=== PATIENT | male | born 1955 | race Caucasian/White ===

== ENCOUNTER 2021-07-23 13:52 | Outpatient (REF) | payer OTHER, SELFPAY ==
[2021-07-23 21:18] LABS: ALT 30 U/L (16-63); AST 28 U/L (15-37); Albumin 4.1 g/dL (3.4-5.0); Alkaline Phosphatase 58 U/L (46-116); BUN 18 mg/dL (7-18); Bilirubin, Total 0.6 mg/dL (0.2-1.0); Chloride 106 mmol/L (98-107); Glucose 148 mg/dL (74-106); Potassium 5.6 mmol/L (3.5-5.1); Sodium 143 mmol/L (136-145); Total Protein 6.7 g/dL (6.4-8.2)
== END 2021-07-23 13:53 | disposition home or self-care (01) ==
LOC: NCHCN 13:52
PROVIDERS: Visit Provider Family Medicine
DX: E11.9 Type 2 diabetes mellitus without complications (principal); I48.20 Chronic atrial fibrillation, unspecified
CPT/HCPCS: 80053

== ENCOUNTER 2022-04-20 12:28 | Outpatient (REF) | payer MEDICARE, BC, SELFPAY ==
[2022-04-20 14:39] LABS: HCT 41.8 % (40.0-50.0); HGB 14.3 g/dL (13.5-17.5); MCH 34.2 pg (27.0-33.0); MCHC 34.2 % (32.0-36.0); MCV 100 fL (80-95); MPV 11.7 fL (8.0-11.0); Platelet Count 214 10^3/uL (130-400); RBC 4.18 10^6/uL (4.36-5.78); RDW 11.6 % (11.8-14.1); RDW-SD 42.1 fL; WBC 5.18 10^3/uL (4.4-10.8)
[2022-04-20 14:43] LABS: Anion Gap 8.9 mmol/L (3-11); BUN 25 mg/dL (7-18); CO2 26.1 mmol/L (21.0-32.0); Calcium 9.2 mg/dL (8.5-10.1); Chloride 107 mmol/L (98-107); Glucose 135 mg/dL (74-106); Potassium 5.5 mmol/L (3.5-5.1); Sodium 142 mmol/L (136-145)
== END 2022-04-20 12:29 | disposition home or self-care (01) ==
LOC: NCHCN 12:28
PROVIDERS: Visit Provider Family Medicine
DX: I48.20 Chronic atrial fibrillation, unspecified (principal); E11.9 Type 2 diabetes mellitus without complications
CPT/HCPCS: 80048; 85027

== ENCOUNTER 2022-09-10 17:22 | Outpatient (REF) | payer MEDICARE, BC, SELFPAY ==
[2022-09-10 21:06] LABS: Abs Immature Grans 0.06 10^3/uL (0.0-0.06); Absolute Basophil Count 0.04 10^3/uL (0.0-0.2); Absolute Eosinophil Count 0.09 10^3/uL (0.0-0.7); Absolute Lymphocyte Count 3.05 10^3/uL (1.2-3.4); Absolute Monocyte Count 0.69 10^3/uL (0.1-0.8); Absolute Neutrophil Count 3.75 10^3/uL (1.2-6.7); Basophils % 0.5; Eosinophils % 1.2; HCT 44.3 % (40.0-50.0); HGB 14.8 g/dL (13.5-17.5); Immature Grans % 0.8; Lymphocytes % 39.7; MCH 33.6 pg (27.0-33.0); MCHC 33.4 % (32.0-36.0); MCV 101 fL (80-95); Neutrophils % 48.8; Platelet Count 246 10^3/uL (130-400); RDW 11.6 % (11.8-14.1); RDW-SD 42.7 fL; WBC 7.68 10^3/uL (4.4-10.8)
[2022-09-10 22:15] LABS: ESR 1 mm/hr (0-20)
[2022-09-10 22:26] LABS: ALT 42 U/L (16-63); AST 48 U/L (15-37); Albumin 4.1 g/dL (3.4-5.0); Alkaline Phosphatase 59 U/L (46-116); Anion Gap 7.5 mmol/L (3-11); BUN 21 mg/dL (7-18); Bilirubin, Total 0.5 mg/dL (0.2-1.0); CO2 27.5 mmol/L (21.0-32.0); CREATININE 1.1 mg/dL (0.70-1.30); Calcium 9.1 mg/dL (8.5-10.1); Chloride 107 mmol/L (98-107); Creatine Kinase 130 U/L (39-308); Estimated GFR 72.67 (mL/min/1.73m2); Glucose 115 mg/dL (74-106); Potassium 4.9 mmol/L (3.5-5.1); Sodium 142 mmol/L (136-145)
== END 2022-09-10 17:23 | disposition home or self-care (01) ==
LOC: NCHCN 17:22
PROVIDERS: Visit Provider Family Medicine
DX: M62.81 Muscle weakness (generalized) (principal); M79.10 Myalgia, unspecified site
CPT/HCPCS: 80053; 82550; 85652; 84550; 85025

== ENCOUNTER 2022-10-05 02:17 | Outpatient (CLI) | payer MEDICARE, BC, SELFPAY ==
--- NOTE | 2022-10-05 | DI.RAD_ITS ---
Exam(s) XR SHOULDER RT COMPLETE 2+V EXAM: XR SHOULDER RT COMPLETE 2+V CLINICAL HISTORY: WEAKNESS OF HAND, M62.81. TECHNIQUE: 2D digital imaging was performed of the right shoulder. Five images were obtained. AP, Grashey, Y-view and axillary views were obtained. COMPARISON: No exams were available for comparison FINDINGS: BONES: No acute fracture is present. No bony destructive lesion is seen. JOINTS: No dislocation present. SOFT TISSUE: Normal. IMPRESSION: Unremarkable radiographs of the right shoulder. DATA REPOSITORY: RADIATION DOSE DELIVERED:
== END 2022-10-05 02:37 ==
LOC: DI 02:17
PROVIDERS: PCP Family Medicine; Visit Provider Family Medicine
DX: G56.01 Carpal tunnel syndrome, right upper limb (principal); R20.2 Paresthesia of skin; M62.81 Muscle weakness (generalized); G56.21 Lesion of ulnar nerve, right upper limb
CPT/HCPCS: 95909; 99203; 73030

== ENCOUNTER 2023-08-16 21:24 | Outpatient (REF) | payer MEDICARE, BC, SELFPAY ==
[2023-08-16 21:24] LABS: HCT 41.8 % (40.0-50.0); HGB 14.2 g/dL (13.5-17.5); MCH 33.6 pg (27.0-33.0); MCV 99 fL (80-95); MPV 10.7 fL (8.0-11.0); Platelet Count 276 10^3/uL (130-400); RBC 4.22 10^6/uL (4.36-5.78); RDW 11.5 % (11.8-14.1); RDW-SD 41.8 fL
--- OUTSIDE RECORDS SUMMARY | 2023-08-16 21:27 | XMS_ITS | Continuity of Care Document ---
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 [address] [place] [address] Encounter Diagnosis Elbow pain(Discharge Diagnosis) - 11/20/22 Forearm pain(Discharge Diagnosis) - 11/20/22 Discharge Disposition: Home or Self Care Attending Physician: Migue Womack MD Admitting Physician: Migue Womack MD Referring Physician: Migue Womack MD Allergies, Adverse Reactions, Alerts Substance Reaction Severity Status sulfa drugs Skin rash Unknown Active insulin detemir Abdominal pain Moderate Active Assessment and Plan Future Appointments Immunizations Given and Recorded Vaccine Date Status Refusal Reason SARS-CoV-2 (COVID-19) mRNA BNT-162b2 vax 06/07/21 Recorded SARS-CoV-2 (COVID-19) mRNA BNT-162b2 vax 09/13/20 Recorded SARS-CoV-2 (COVID-19) mRNA BNT-162b2 vax 08/23/20 Recorded influenza virus vaccine, live 07/26/19 Recorded influenza virus vaccine, live 07/02/18 Recorded influenza virus vaccine, inactivated 07/16/17 Sergey rded influenza virus vaccine, inactivated 07/18/15 Sergey rded influenza virus vaccine, inactivated 06/05/14 Sergey rded influenza virus vaccine, inactivated 07/28/13 Sergey rded influenza virus vaccine, inactivated 06/11/11 Sergey rded influenza virus vaccine, inactivated 06/06/10 Sergey rded influenza virus vaccine, inactivated 09/06/08 Sergey rded pneumococcal 23-polyvalent vaccine 10/31/10 Record ed Novel [id number], all formulation 09/06/08 Recorded hepatitis B adult vaccine 09/06/00 Recorded tetanus/diphth/pertuss (Tdap) adult/adol 09/06/00 Recorded measles/mumps/rubella virus vaccine 09/06/00 Recor ded varicella virus vaccine 09/06/00 Recorded Medications apixaban 5 mg oral tablet 5 mg = 1 tab, Oral, BID, # 60 tab, 0 Refill(s) Start Date: 10/16/22 Status: Ordered lisinopril 5 mg oral tablet 0 Refill(s) Start Date: 10/16/22 Status: Ordered magnesium oxide 500 mg oral capsule 0 Refill(s) Start Date: 10/16/22 Status: Ordered metFORMIN 1000 mg oral tablet 0 Refill(s) Start Date: 10/16/22 Status: Ordered metoprolol succinate 50 mg oral capsule, extended release 0 Refill(s) Start Date: 10/16/22 Status: Ordered ONE TOUCH ULTRA BLUE TESTST(NEW)100 ONE TOUCH ULTRA BLUE TESTST(NEW)100, See Instructions, USE TO TEST FOUR TIMES DAILY, # 100 strip, 0Refill(s), [id number] Start Date: 02/12/22 Status: Ordered sildenafil 100 mg oral tablet 0 Refill(s) Start Date: 10/16/22 Status: Ordered simvastatin 40 mg oral tablet 0 Refill(s) Start Date: 10/16/22 Status: Ordered Problem List Condition Confirmation Course Effective Dates Status Health St [facility] Informant Cataracts, bilateral Confirmed Active Carpal tunnel syndrome, right Confirmed Active Chronic a-fib Confirmed Active Impotence Confirmed Active Hyperlipemia Confirmed Active Low back pain Confirmed Active Myalgia Confirmed Active Elbow pain Confirmed Active Forearm pain Confirmed Active Sciatica Confirmed Active Type 2 diabetes mellitus Confirmed Active Hand weakness Confirmed Active Procedures Procedure Date Related Diagnosis Body Site Status Appendectomy; Completed Tonsillectomy and adenoidect rehana; younger than age 12 Completed Social History Social History Type Response Tobacco Never tobacco user T obacco Use:. Sex Male Patient Care team information Care Team Personnel Name: Josselin Carpenter NP Position: No Access Member Role: Primary Care Physician Address: Address: Manager [employer]ch[employer]ising Adult [facility] [address] [place], [place] [address]
[2023-08-16 21:41] LABS: ALT 26 U/L (16-63); AST 31 U/L (15-37); Albumin 3.7 g/dL (3.4-5.0); Alkaline Phosphatase 62 U/L (46-116); BUN 17 mg/dL (7-18); Bilirubin, Total 0.6 mg/dL (0.2-1.0); CREATININE 1.1 mg/dL (0.70-1.30); Calcium 9.3 mg/dL (8.5-10.1); Chloride 104 mmol/L (98-107); Estimated GFR 72.22 (mL/min/1.73m2); Glucose 171 mg/dL (74-106); Hemoglobin A1C 7.5 % (<5.7); Potassium 5.2 mmol/L (3.5-5.1); Sodium 139 mmol/L (136-145); Total Protein 6.9 g/dL (6.4-8.2)
== END 2023-08-16 21:25 | disposition home or self-care (01) ==
LOC: NCHCN 21:24
PROVIDERS: PCP Family Medicine; Visit Provider Family Medicine
DX: E11.9 Type 2 diabetes mellitus without complications (principal)
CPT/HCPCS: 80053; 85027; 83036

== ENCOUNTER 2024-05-04 16:49 | Outpatient (REF) | payer MEDICARE, BC, SELFPAY ==
[2024-05-04 17:40] LABS: COMMENT (LAB VIEW ONLY) 80.03 mg/dL; Microalb ug/mg Crea 8.4 ug/mg Cr
== END 2024-05-04 16:50 | disposition home or self-care (01) ==
LOC: NCHCN 16:49
PROVIDERS: PCP Family Medicine; Visit Provider Family Medicine
DX: E11.9 Type 2 diabetes mellitus without complications (principal)
CPT/HCPCS: 82043; 82570

== ENCOUNTER 2024-10-10 21:28 | Outpatient (REF) | payer MEDICARE, BC, SELFPAY ==
[2024-10-10 21:37] LABS: HCT 42.2 % (40.0-50.0); HGB 14.3 g/dL (13.5-17.5); MCHC 33.9 % (32.0-36.0); MCV 100 fL (80-95); MPV 11.1 fL (8.0-11.0); Platelet Count 206 10^3/uL (130-400); RBC 4.21 10^6/uL (4.36-5.78); RDW 11.3 % (11.8-14.1); RDW-SD 41.6 fL; WBC 5.95 10^3/uL (4.4-10.8)
[2024-10-10 21:48] LABS: ALT 23 U/L (16-63); AST 31 U/L (15-37); Albumin 3.9 g/dL (3.4-5.0); Alkaline Phosphatase 64 U/L (46-116); Anion Gap 10.3 mmol/L (3-11); BUN 20 mg/dL (7-18); Bilirubin, Total 0.54 mg/dL (0.2-1.0); CO2 25.7 mmol/L (21.0-32.0); CREATININE 1.1 mg/dL (0.70-1.30); Calcium 9.2 mg/dL (8.5-10.1); Chloride 106 mmol/L (98-107); Estimated GFR 71.77 (mL/min/1.73m2); Glucose 78 mg/dL (74-106); LDL CHOLESTEROL 80 mg/dL (<100); Potassium 4.5 mmol/L (3.5-5.1); Sodium 142 mmol/L (136-145); Total Protein 6.6 g/dL (6.4-8.2)
== END 2024-10-10 21:29 | disposition home or self-care (01) ==
LOC: NCHCN 21:28
PROVIDERS: PCP Family Medicine; Visit Provider Family Medicine
DX: E11.9 Type 2 diabetes mellitus without complications (principal)
CPT/HCPCS: 80053; 83721; 85027

== ENCOUNTER 2025-01-31 21:52 | Outpatient (REF) | payer MEDICARE, BC, SELFPAY ==
[2025-01-31 22:40] LABS: Vitamin D 25 Total 30 ng/mL (30-100)
== END 2025-01-31 21:53 | disposition home or self-care (01) ==
LOC: NCHCN 21:52
PROVIDERS: PCP Family Medicine; Visit Provider Family Medicine
DX: R25.2 Cramp and spasm (principal)
CPT/HCPCS: 82306

== ENCOUNTER 2025-05-23 19:54 | Outpatient (REF) | payer MEDICARE, BC, SELFPAY ==
[2025-05-23 22:37] LABS: COMMENT (LAB VIEW ONLY) 89.60 mg/dL; Microalb ug/mg Crea 97.9 ug/mg Cr
== END 2025-05-23 19:55 | disposition home or self-care (01) ==
LOC: NCHCN 19:54
PROVIDERS: PCP Family Medicine; Visit Provider Family Medicine
DX: E11.9 Type 2 diabetes mellitus without complications (principal)
CPT/HCPCS: 82043; 82570